=== PATIENT | male | born 1970 | race Two or more races ===

== ENCOUNTER 2020-08-22 18:27 | Inpatient (IN) | payer OTHER ==
[2020-08-22] MEDS ORDERED: P-EPHED 60MG/TRIPROLIDI 2.5MG TABLET PO PRN (21:16)
[2020-08-22] MEDS ORDERED: NICOTINE POLACRILEX 2 MG GUM BUC PRN (21:16)
[2020-08-22] MEDS ORDERED: guaiFENesin 200 MG/10 ML 10 ML UNIT-DOSE CUPS PO PRN (21:16)
[2020-08-22] MEDS ORDERED: DICYCLOMINE HCL 10 MG CAPSULE PO PRN (21:16)
[2020-08-22] MEDS ORDERED: IBUPROFEN 400 MG TABLET (FP) PO PRN (21:16)
[2020-08-22] MEDS ORDERED: MAGNESIUM HYDROX 2400MG/30ML ORAL SUSPENSION 30 ML CUP PO PRN (21:16)
[2020-08-22] MEDS ORDERED: NALOXONE HCL 0.4 MG/ML VIAL IM PRN (21:16)
[2020-08-22] MEDS ORDERED: NALOXONE (NARCAN) HCL 4 MG/0.1 ML SPRAY NS PRN (21:16)
[2020-08-22] MEDS ORDERED: MAGNESIUM CITRATE 300 ML BOTTLE PO PRN (21:16)
[2020-08-22] MEDS ORDERED: ACETAMINOPHEN 325 MG TABLET (FP) PO PRN ×2 (21:16)
[2020-08-22] MEDS ORDERED: MENTHOL/PHENOL 1 EACH UD MM PRN (21:16)
[2020-08-22] MEDS ORDERED: BISMUTH SUBSALICYLATE 524 MG/30 ML PO PRN (21:16)
[2020-08-22] MEDS ORDERED: MAG HYDROX/AL HYDROX/SIMETH 30 ML UNIT-DOSE CUP PO PRN (21:16)
[2020-08-22] MEDS ORDERED: ONDANSETRON *ODT* 4 MG TABLET SL PRN (21:16)
[2020-08-22] MEDS ORDERED: diazePAM 5 MG TABLET ONE (21:41)
[2020-08-22] MEDS: diazePAM 5 MG TABLET PO PRN (21:44)
[2020-08-22 21:55] VITALS: BMI 28.5
[2020-08-22] MEDS: diazePAM 5 MG TABLET PO SCH (23:29)
[2020-08-22] MEDS: THIAMINE HCL 100 MG TABLET (FP) PO SCH (23:30)
[2020-08-22] MEDS: MELATONIN 5 MG TABLETS PO SCH (23:30)
[2020-08-23] MEDS: diazePAM 5 MG TABLET PO SCH ×4 (05:22→22:10)
[2020-08-23] MEDS: METHOCARBAMOL 500 MG TABLET PO PRN (05:22)
[2020-08-23] MEDS: diazePAM 5 MG TABLET PO PRN ×2 (08:54→15:25)
[2020-08-23] MEDS: NICOTINE 21 MG/24 HOURS TOPICAL PATCH TD SCH (10:05)
[2020-08-23] MEDS: METHADONE HCL 40 MG DISPERSABLE TABLET PO SCH (10:05)
[2020-08-23] MEDS: cloNIDine HCL 0.1 MG TABLET PO SCH ×2 (10:05→22:10)
[2020-08-23] MEDS: PRENATAL VITAMINS W/ FOLIC ACID TABLET (FP) PO SCH (10:06)
[2020-08-23 10:21] LABS: HEMATOCRIT 40.7 % (35.4-49); HEMOGLOBIN 14.2 GM/dL (11.7-16.9); MCH 31.8 pg (25.7-33.7); MCHC 34.9 g/dl (32.0-35.9); MEAN PLT VOLUME 8.9 fl (7.5-11.1); PLATELET COUNT 195 K/MM3 (134-434); RBC 4.47 M/mm3 (4.00-5.60); RDW 13.9 % (11.9-15.9); WHITE BLOOD COUNT 7.4 K/mm3 (4.0-10.0)
[2020-08-23 10:29] LABS: ALBUMIN 4.1 g/dl (3.4-5.0); CALCIUM 8.7 mg/dL (8.5-10.1)
[2020-08-23 10:30] LABS: BLOOD UREA NITROGEN 12.2 mg/dL (7-18)
[2020-08-23 10:34] LABS: BILIRUBIN,TOTAL 0.4 mg/dL (0.2-1); TOT PROT 7.7 g/dl (6.4-8.2)
[2020-08-23] MEDS: THIAMINE HCL 100 MG TABLET (FP) PO SCH (22:10)
[2020-08-23] MEDS: MELATONIN 5 MG TABLETS PO SCH (22:11)
[2020-08-23] MEDS: MIRTAZAPINE 15 MG TABLET (FP) PO SCH (22:11)
[2020-08-24] MEDS: METHADONE HCL 40 MG DISPERSABLE TABLET PO SCH (06:06)
[2020-08-24] MEDS: diazePAM 5 MG TABLET PO SCH ×3 (06:08→22:25)
[2020-08-24] MEDS: cloNIDine HCL 0.1 MG TABLET PO SCH ×2 (10:06→23:06)
[2020-08-24] MEDS: NICOTINE 21 MG/24 HOURS TOPICAL PATCH TD SCH (10:06)
[2020-08-24] MEDS: PRENATAL VITAMINS W/ FOLIC ACID TABLET (FP) PO SCH (10:06)
[2020-08-24] MEDS: diazePAM 5 MG TABLET PO PRN ×2 (16:46→20:24)
[2020-08-24] MEDS: MIRTAZAPINE 15 MG TABLET (FP) PO SCH (22:25)
[2020-08-24] MEDS: THIAMINE HCL 100 MG TABLET (FP) PO SCH (22:25)
[2020-08-24] MEDS: MELATONIN 5 MG TABLETS PO SCH (22:26)
[2020-08-25] MEDS: METHADONE HCL 40 MG DISPERSABLE TABLET PO SCH (05:54)
[2020-08-25] MEDS: diazePAM 5 MG TABLET PO SCH ×2 (05:55→17:01)
[2020-08-25] MEDS ORDERED: TRIMETHOBENZAMIDE HCL 300 MG CAPSULE PO PRN (09:18)
[2020-08-25] MEDS ORDERED: METHADONE HCL 10 MG TABLET PO ONE (09:23)
[2020-08-25] MEDS ORDERED: METHADONE 80 MG, METHADONE 10 MG PO ONE (09:45)
[2020-08-25] MEDS ORDERED: DICYCLOMINE HCL 10 MG CAPSULE PO ONE (09:52)
[2020-08-25] MEDS ORDERED: METHADONE HCL 40 MG DISPERSABLE TABLET ONE (09:53)
[2020-08-25] MEDS ORDERED: ONDANSETRON *ODT* 4 MG TABLET SL ONE (09:53)
[2020-08-25] MEDS ORDERED: METHADONE HCL 10 MG TABLET ONE (09:53)
[2020-08-25] MEDS: NICOTINE 21 MG/24 HOURS TOPICAL PATCH TD SCH (10:00)
[2020-08-25] MEDS: PRENATAL VITAMINS W/ FOLIC ACID TABLET (FP) PO SCH (10:01)
[2020-08-25] MEDS: cloNIDine HCL 0.1 MG TABLET PO SCH ×2 (10:01→22:19)
[2020-08-25] MEDS: hydrOXYzine PAMOATE 25 MG CAPSULE (FP) PO PRN (17:01)
[2020-08-25] MEDS: METHOCARBAMOL 500 MG TABLET PO PRN (17:01)
[2020-08-25] MEDS: MELATONIN 5 MG TABLETS PO SCH (22:19)
[2020-08-25] MEDS: THIAMINE HCL 100 MG TABLET (FP) PO SCH (22:19)
[2020-08-25] MEDS: MIRTAZAPINE 15 MG TABLET (FP) PO SCH (22:19)
[2020-08-26] MEDS ORDERED: METHADONE HCL 10 MG TABLET ONE (04:29)
[2020-08-26] MEDS ORDERED: METHADONE HCL 40 MG DISPERSABLE TABLET ONE (04:30)
[2020-08-26] MEDS: METHADONE 160 MG, METHADONE 30 MG PO SCH (05:37)
[2020-08-26] MEDS ORDERED: diazePAM 5 MG TABLET PO ONE (06:00)
[2020-08-26] MEDS: cloNIDine HCL 0.1 MG TABLET PO SCH ×2 (10:14→22:06)
[2020-08-26] MEDS: NICOTINE 21 MG/24 HOURS TOPICAL PATCH TD SCH (10:14)
[2020-08-26] MEDS: PRENATAL VITAMINS W/ FOLIC ACID TABLET (FP) PO SCH (10:14)
[2020-08-26 14:07] LABS: SARS-CoV-2 NAA Not Detected (Not Detected)
[2020-08-26] MEDS: hydrOXYzine PAMOATE 25 MG CAPSULE (FP) PO PRN (19:13)
[2020-08-26] MEDS: THIAMINE HCL 100 MG TABLET (FP) PO SCH (22:06)
[2020-08-26] MEDS: MIRTAZAPINE 15 MG TABLET (FP) PO SCH (22:06)
[2020-08-26] MEDS: MELATONIN 5 MG TABLETS PO SCH (22:06)
[2020-08-27] MEDS ORDERED: METHADONE HCL 40 MG DISPERSABLE TABLET ONE (04:57)
[2020-08-27] MEDS ORDERED: METHADONE HCL 10 MG TABLET ONE (04:57)
[2020-08-27] MEDS ORDERED: diazePAM 5 MG TABLET PO ONE (05:00)
[2020-08-27] MEDS: METHADONE 160 MG, METHADONE 30 MG PO SCH (05:21)
[2020-08-27] MEDS: PRENATAL VITAMINS W/ FOLIC ACID TABLET (FP) PO SCH (10:02)
[2020-08-27] MEDS: cloNIDine HCL 0.1 MG TABLET PO SCH (10:03)
[2020-08-27] MEDS: NICOTINE 21 MG/24 HOURS TOPICAL PATCH TD SCH (10:03)
[2020-08-27 13:20] VITALS: BP 147/96; PULSE 69; TEMP 98.6
[2020-08-27] MEDS: hydrOXYzine PAMOATE 25 MG CAPSULE (FP) PO PRN (13:32)
[2020-08-27] MEDS ORDERED: PSYLLIUM 5.85 GM PACKET PO SCH (14:00)
== END 2020-08-27 15:11 | disposition other institution (70) | DRG 773 ==
LOC: YASAS 18:27 → Y6N 22:04
PROVIDERS: ADMIT Allergy & Immunology; ATTEND Allergy & Immunology
PROC: HZ2ZZZZ Detoxification Services for Substance Abuse Treatment (ICD-10-PCS; principal; 2020-08-22)
DX: F13.230 Sedative, hypnotic or anxiolytic dependence with withdrawal, uncomplicated (principal); F11.20 Opioid dependence, uncomplicated; F17.210 Nicotine dependence, cigarettes, uncomplicated; F19.24 Other psychoactive substance dependence with psychoactive substance-induced mood disorder; G40.509 Epileptic seizures related to external causes, not intractable, without status epilepticus; G47.00 Insomnia, unspecified; I10 Essential (primary) hypertension; B18.2 Chronic viral hepatitis C
CPT/HCPCS: 36415; 80053; 85027; 86780; C9803; J0735; Q0162; U0003; U0005

== ENCOUNTER 2020-08-27 15:31 | Inpatient (IN) | payer OTHER ==
[2020-08-27] MEDS ORDERED: guaiFENesin 200 MG/10 ML 10 ML UNIT-DOSE CUPS PO PRN (15:49)
[2020-08-27] MEDS ORDERED: MAGNESIUM CITRATE 300 ML BOTTLE PO PRN (15:49)
[2020-08-27] MEDS ORDERED: MAG HYDROX/AL HYDROX/SIMETH 30 ML UNIT-DOSE CUP PO PRN (15:49)
[2020-08-27] MEDS ORDERED: NICOTINE POLACRILEX 4 MG GUM BC PRN (15:49)
[2020-08-27] MEDS ORDERED: ACETAMINOPHEN 325 MG TABLET (FP) PO PRN (15:49)
[2020-08-27] MEDS ORDERED: P-EPHED 60MG/TRIPROLIDI 2.5MG TABLET PO PRN (15:49)
[2020-08-27] MEDS ORDERED: LOPERAMIDE HCL 2 MG CAPSULE PO PRN (15:49)
[2020-08-27] MEDS ORDERED: cloNIDine HCL 0.1 MG TABLET PO ONE (16:54)
[2020-08-27] MEDS: hydrOXYzine PAMOATE 25 MG CAPSULE (FP) PO SCH ×2 (18:09→21:14)
[2020-08-27] MEDS: THIAMINE HCL 100 MG TABLET (FP) PO SCH (21:13)
[2020-08-27] MEDS: MELATONIN 5 MG TABLETS PO SCH (21:13)
[2020-08-27] MEDS: MIRTAZAPINE 15 MG TABLET (FP) PO SCH (21:14)
[2020-08-27] MEDS: cloNIDine HCL 0.1 MG TABLET PO SCH (21:14)
[2020-08-28] MEDS ORDERED: METHADONE HCL 10 MG TABLET PO SCH (06:00)
[2020-08-28] MEDS ORDERED: METHADONE HCL 40 MG DISPERSABLE TABLET ONE (06:17)
[2020-08-28] MEDS ORDERED: METHADONE HCL 10 MG TABLET ONE (06:17)
[2020-08-28] MEDS: METHADONE 160 MG, METHADONE 30 MG PO SCH (06:18)
[2020-08-28] MEDS: hydrOXYzine PAMOATE 25 MG CAPSULE (FP) PO SCH ×5 (06:19→21:09)
[2020-08-28] MEDS: NICOTINE 21 MG/24 HOURS TOPICAL PATCH TD SCH (09:52)
[2020-08-28] MEDS: cloNIDine HCL 0.1 MG TABLET PO SCH ×2 (09:52→21:09)
[2020-08-28] MEDS: PRENATAL VITAMINS W/ FOLIC ACID TABLET (FP) PO SCH (10:38)
[2020-08-28] MEDS: PSYLLIUM 5.85 GM PACKET PO SCH (14:12)
[2020-08-28] MEDS: MIRTAZAPINE 15 MG TABLET (FP) PO SCH (21:09)
[2020-08-28] MEDS: MELATONIN 5 MG TABLETS PO SCH (21:10)
[2020-08-28] MEDS: THIAMINE HCL 100 MG TABLET (FP) PO SCH (21:11)
[2020-08-29] MEDS ORDERED: METHADONE HCL 40 MG DISPERSABLE TABLET ONE (03:17)
[2020-08-29] MEDS ORDERED: METHADONE HCL 10 MG TABLET ONE (03:18)
[2020-08-29] MEDS: hydrOXYzine PAMOATE 25 MG CAPSULE (FP) PO SCH ×6 (06:41→21:48)
[2020-08-29] MEDS: METHADONE 160 MG, METHADONE 30 MG PO SCH (06:41)
[2020-08-29] MEDS ORDERED: SODIUM PHOSPHATE/NA BIPHOS 133 ML ENEMA RC ONE (10:00)
[2020-08-29] MEDS: PRENATAL VITAMINS W/ FOLIC ACID TABLET (FP) PO SCH (10:16)
[2020-08-29] MEDS: NICOTINE 21 MG/24 HOURS TOPICAL PATCH TD SCH (10:17)
[2020-08-29] MEDS: PSYLLIUM 5.85 GM PACKET PO SCH (10:17)
[2020-08-29] MEDS: cloNIDine HCL 0.1 MG TABLET PO SCH ×2 (10:17→21:47)
[2020-08-29] MEDS: THIAMINE HCL 100 MG TABLET (FP) PO SCH (21:47)
[2020-08-29] MEDS: MIRTAZAPINE 15 MG TABLET (FP) PO SCH (21:47)
[2020-08-29] MEDS: MELATONIN 5 MG TABLETS PO SCH (21:48)
[2020-08-30] MEDS ORDERED: METHADONE HCL 40 MG DISPERSABLE TABLET ONE (03:31)
[2020-08-30] MEDS ORDERED: METHADONE HCL 10 MG TABLET ONE (03:31)
[2020-08-30] MEDS: METHADONE 160 MG, METHADONE 30 MG PO SCH (06:19)
[2020-08-30] MEDS: hydrOXYzine PAMOATE 25 MG CAPSULE (FP) PO SCH ×5 (06:20→21:17)
[2020-08-30] MEDS: PRENATAL VITAMINS W/ FOLIC ACID TABLET (FP) PO SCH (10:26)
[2020-08-30] MEDS: PSYLLIUM 5.85 GM PACKET PO SCH (10:26)
[2020-08-30] MEDS: NICOTINE 21 MG/24 HOURS TOPICAL PATCH TD SCH (10:26)
[2020-08-30] MEDS: cloNIDine HCL 0.1 MG TABLET PO SCH ×2 (10:26→21:17)
[2020-08-30] MEDS: IBUPROFEN 400 MG TABLET (FP) PO PRN (17:17)
[2020-08-30] MEDS: MELATONIN 5 MG TABLETS PO SCH (21:17)
[2020-08-30] MEDS: MIRTAZAPINE 15 MG TABLET (FP) PO SCH (21:17)
[2020-08-30] MEDS: THIAMINE HCL 100 MG TABLET (FP) PO SCH (21:18)
[2020-08-31] MEDS ORDERED: METHADONE HCL 10 MG TABLET ONE (04:13)
[2020-08-31] MEDS ORDERED: METHADONE HCL 40 MG DISPERSABLE TABLET ONE (04:13)
[2020-08-31] MEDS: METHADONE 160 MG, METHADONE 30 MG PO SCH (06:07)
[2020-08-31] MEDS: hydrOXYzine PAMOATE 25 MG CAPSULE (FP) PO SCH ×5 (06:07→21:36)
[2020-08-31] MEDS: MAGNESIUM HYDROX 2400MG/30ML ORAL SUSPENSION 30 ML CUP PO PRN (07:42)
[2020-08-31] MEDS: cloNIDine HCL 0.1 MG TABLET PO SCH ×2 (10:01→21:35)
[2020-08-31] MEDS: NICOTINE 21 MG/24 HOURS TOPICAL PATCH TD SCH (10:02)
[2020-08-31] MEDS: PRENATAL VITAMINS W/ FOLIC ACID TABLET (FP) PO SCH (10:02)
[2020-08-31] MEDS: PSYLLIUM 5.85 GM PACKET PO SCH (10:02)
[2020-08-31 11:07] LABS: SARS-CoV-2 NAA Not Detected (Not Detected)
[2020-08-31] MEDS: MELATONIN 5 MG TABLETS PO SCH (21:36)
[2020-08-31] MEDS: MIRTAZAPINE 15 MG TABLET (FP) PO SCH (21:36)
[2020-08-31] MEDS: THIAMINE HCL 100 MG TABLET (FP) PO SCH (21:36)
[2020-09-01] MEDS ORDERED: METHADONE HCL 10 MG TABLET ONE (03:06)
[2020-09-01] MEDS ORDERED: METHADONE HCL 40 MG DISPERSABLE TABLET ONE (03:06)
[2020-09-01] MEDS: METHADONE 160 MG, METHADONE 30 MG PO SCH (06:10)
[2020-09-01] MEDS: MAGNESIUM HYDROX 2400MG/30ML ORAL SUSPENSION 30 ML CUP PO PRN (06:10)
[2020-09-01] MEDS: hydrOXYzine PAMOATE 25 MG CAPSULE (FP) PO SCH ×3 (06:12→14:56)
[2020-09-01] MEDS: PRENATAL VITAMINS W/ FOLIC ACID TABLET (FP) PO SCH (09:26)
[2020-09-01] MEDS: cloNIDine HCL 0.1 MG TABLET PO SCH ×2 (09:26→21:14)
[2020-09-01] MEDS: NICOTINE 21 MG/24 HOURS TOPICAL PATCH TD SCH (09:26)
[2020-09-01] MEDS: PSYLLIUM 5.85 GM PACKET PO SCH (10:31)
[2020-09-01] MEDS ORDERED: MASKS NR ONE (13:01)
[2020-09-01] MEDS: MIRTAZAPINE 15 MG TABLET (FP) PO SCH (21:14)
[2020-09-01] MEDS: THIAMINE HCL 100 MG TABLET (FP) PO SCH (21:14)
[2020-09-01] MEDS: MELATONIN 5 MG TABLETS PO SCH (21:14)
[2020-09-02] MEDS ORDERED: METHADONE HCL 40 MG DISPERSABLE TABLET ONE (03:27)
[2020-09-02] MEDS ORDERED: METHADONE HCL 10 MG TABLET ONE (03:27)
[2020-09-02] MEDS: METHADONE 160 MG, METHADONE 30 MG PO SCH (06:14)
[2020-09-02] MEDS: PRENATAL VITAMINS W/ FOLIC ACID TABLET (FP) PO SCH (09:41)
[2020-09-02] MEDS: cloNIDine HCL 0.1 MG TABLET PO SCH ×2 (09:41→21:29)
[2020-09-02] MEDS: NICOTINE 21 MG/24 HOURS TOPICAL PATCH TD SCH (09:41)
[2020-09-02] MEDS: PSYLLIUM 5.85 GM PACKET PO SCH (09:42)
[2020-09-02] MEDS: hydrOXYzine PAMOATE 25 MG CAPSULE (FP) PO PRN (16:26)
[2020-09-02] MEDS: MAGNESIUM HYDROX 2400MG/30ML ORAL SUSPENSION 30 ML CUP PO PRN (16:26)
[2020-09-02] MEDS: MIRTAZAPINE 15 MG TABLET (FP) PO SCH (21:29)
[2020-09-02] MEDS: MELATONIN 5 MG TABLETS PO SCH (21:30)
[2020-09-02] MEDS: THIAMINE HCL 100 MG TABLET (FP) PO SCH (21:30)
[2020-09-03] MEDS ORDERED: METHADONE HCL 40 MG DISPERSABLE TABLET ONE (03:10)
[2020-09-03] MEDS ORDERED: METHADONE HCL 10 MG TABLET ONE (03:11)
[2020-09-03] MEDS: METHADONE 160 MG, METHADONE 30 MG PO SCH (06:13)
[2020-09-03] MEDS: cloNIDine HCL 0.1 MG TABLET PO SCH ×2 (09:50→21:12)
[2020-09-03] MEDS: PRENATAL VITAMINS W/ FOLIC ACID TABLET (FP) PO SCH (09:50)
[2020-09-03] MEDS: NICOTINE 21 MG/24 HOURS TOPICAL PATCH TD SCH (09:51)
[2020-09-03] MEDS: PSYLLIUM 5.85 GM PACKET PO SCH (09:51)
[2020-09-03] MEDS: MIRTAZAPINE 15 MG TABLET (FP) PO SCH (21:12)
[2020-09-03] MEDS: IBUPROFEN 400 MG TABLET (FP) PO PRN (21:14)
[2020-09-03] MEDS: THIAMINE HCL 100 MG TABLET (FP) PO SCH (21:14)
[2020-09-03] MEDS: MELATONIN 5 MG TABLETS PO SCH (21:14)
[2020-09-04] MEDS ORDERED: METHADONE HCL 40 MG DISPERSABLE TABLET ONE (05:15)
[2020-09-04] MEDS ORDERED: METHADONE HCL 10 MG TABLET ONE (05:16)
[2020-09-04] MEDS: METHADONE 160 MG, METHADONE 30 MG PO SCH (06:26)
[2020-09-04] MEDS: PSYLLIUM 5.85 GM PACKET PO SCH (10:57)
[2020-09-04] MEDS: NICOTINE 21 MG/24 HOURS TOPICAL PATCH TD SCH (10:57)
[2020-09-04] MEDS: cloNIDine HCL 0.1 MG TABLET PO SCH ×2 (10:57→21:37)
[2020-09-04] MEDS: PRENATAL VITAMINS W/ FOLIC ACID TABLET (FP) PO SCH (10:58)
[2020-09-04] MEDS: MAGNESIUM HYDROX 2400MG/30ML ORAL SUSPENSION 30 ML CUP PO PRN (16:37)
[2020-09-04] MEDS: hydrOXYzine PAMOATE 25 MG CAPSULE (FP) PO PRN (21:37)
[2020-09-04] MEDS: MIRTAZAPINE 15 MG TABLET (FP) PO SCH (21:37)
[2020-09-04] MEDS: THIAMINE HCL 100 MG TABLET (FP) PO SCH (21:38)
[2020-09-04] MEDS: MELATONIN 5 MG TABLETS PO SCH (21:38)
[2020-09-05] MEDS ORDERED: METHADONE HCL 10 MG TABLET ONE (03:17)
[2020-09-05] MEDS ORDERED: METHADONE HCL 40 MG DISPERSABLE TABLET ONE (03:17)
[2020-09-05] MEDS: IBUPROFEN 400 MG TABLET (FP) PO PRN (06:14)
[2020-09-05] MEDS: METHADONE 160 MG, METHADONE 30 MG PO SCH (06:15)
[2020-09-05] MEDS ORDERED: cloNIDine HCL 0.1 MG TABLET PO ONE (07:15)
[2020-09-05] MEDS: PSYLLIUM 5.85 GM PACKET PO SCH (09:05)
[2020-09-05] MEDS: NICOTINE 21 MG/24 HOURS TOPICAL PATCH TD SCH (09:05)
[2020-09-05] MEDS: cloNIDine HCL 0.1 MG TABLET PO SCH (09:05)
[2020-09-05] MEDS: PRENATAL VITAMINS W/ FOLIC ACID TABLET (FP) PO SCH (09:05)
[2020-09-05 09:27] VITALS: BP 192/89; PULSE 57; TEMP 57
== END 2020-09-05 10:00 | disposition home or self-care (01) | DRG 772 ==
LOC: YASAS 15:31 → Y3W 15:40 → UNDOADMIN 15:40 → UNDODISIN 09-05 10:00
PROVIDERS: ADMIT Allergy & Immunology; ATTEND Allergy & Immunology
PROC: HZ42ZZZ Group Counseling for Substance Abuse Treatment, Cognitive-Behavioral (ICD-10-PCS; principal; 2020-08-27)
DX: F11.20 Opioid dependence, uncomplicated (principal); F13.20 Sedative, hypnotic or anxiolytic dependence, uncomplicated; F17.210 Nicotine dependence, cigarettes, uncomplicated; I10 Essential (primary) hypertension; K59.00 Constipation, unspecified
CPT/HCPCS: C9803; J0735; U0003; U0005

== ENCOUNTER 2020-11-30 11:08 | Inpatient (IN) | payer OTHER ==
[2020-11-30 12:06] VITALS: BMI 28.5
[2020-11-30] MEDS ORDERED: NICOTINE 10 MG CARTRIDGE (INHALER) IH PRN (13:14)
[2020-11-30] MEDS ORDERED: IBUPROFEN 400 MG TABLET (FP) PO PRN (13:14)
[2020-11-30] MEDS ORDERED: ONDANSETRON *ODT* 4 MG TABLET SL PRN (13:14)
[2020-11-30] MEDS ORDERED: MENTHOL/PHENOL 1 EACH UD MM PRN (13:14)
[2020-11-30] MEDS ORDERED: diazePAM 5 MG TABLET PO PRN (13:14)
[2020-11-30] MEDS ORDERED: ACETAMINOPHEN 325 MG TABLET (FP) PO PRN ×2 (13:14)
[2020-11-30] MEDS ORDERED: METHOCARBAMOL 500 MG TABLET PO PRN (13:14)
[2020-11-30] MEDS ORDERED: BISMUTH SUBSALICYLATE 524 MG/30 ML PO PRN (13:14)
[2020-11-30] MEDS ORDERED: diazePAM 5 MG TABLET PO ONE (13:14)
[2020-11-30] MEDS ORDERED: MAG HYDROX/AL HYDROX/SIMETH 30 ML UNIT-DOSE CUP PO PRN (13:14)
[2020-11-30] MEDS ORDERED: MAGNESIUM HYDROX 2400MG/30ML ORAL SUSPENSION 30 ML CUP PO PRN (13:14)
[2020-11-30] MEDS ORDERED: NICOTINE POLACRILEX 2 MG GUM BUC PRN (13:14)
[2020-11-30] MEDS ORDERED: MAGNESIUM CITRATE 300 ML BOTTLE PO PRN (13:14)
[2020-11-30] MEDS ORDERED: diazePAM 5 MG TABLET ONE (15:01)
[2020-11-30] MEDS ORDERED: hydrOXYzine PAMOATE 25 MG CAPSULE (FP) PO ONE (15:01)
[2020-11-30] MEDS: hydrOXYzine PAMOATE 25 MG CAPSULE (FP) PO SCH ×2 (15:02→17:27)
[2020-11-30] MEDS: diazePAM 5 MG TABLET PO SCH (17:27)
[2020-11-30] MEDS ORDERED: THIAMINE HCL 100 MG TABLET (FP) PO SCH (22:00)
[2020-11-30] MEDS ORDERED: MELATONIN 5 MG TABLETS PO SCH (22:00)
[2020-12-01] MEDS: diazePAM 5 MG TABLET PO SCH ×3 (00:03→10:17)
[2020-12-01] MEDS: hydrOXYzine PAMOATE 25 MG CAPSULE (FP) PO SCH ×3 (00:03→11:03)
[2020-12-01] MEDS ORDERED: methaDONE HCL 10 MG TABLET ONE (04:11)
[2020-12-01] MEDS ORDERED: methaDONE HCL 40 MG DISPERSABLE TABLET ONE (04:12)
[2020-12-01] MEDS ORDERED: methaDONE HCL 10 MG TABLET PO ONE (06:00)
[2020-12-01] MEDS ORDERED: PRENATAL VITAMINS W/ FOLIC ACID TABLET (FP) PO SCH (10:00)
[2020-12-01] MEDS ORDERED: hydrOXYzine PAMOATE 50 MG CAPSULE (FP) PO PRN (10:08)
[2020-12-01 12:57] VITALS: BP 129/94; PULSE 56; TEMP 98
[2020-12-01] MEDS ORDERED: MIRTAZAPINE 30 MG TABLET PO SCH (22:00)
[2020-12-02] MEDS ORDERED: diazePAM 5 MG TABLET PO SCH (06:00)
[2020-12-03] MEDS ORDERED: diazePAM 5 MG TABLET PO SCH (06:00)
[2020-12-04] MEDS ORDERED: diazePAM 5 MG TABLET PO ONE (06:00)
== END 2020-12-01 15:34 | disposition left against medical advice (07) | DRG 770 ==
LOC: YASAS 11:08 → Y6N 15:55 → Y3N 12-01 14:38
PROVIDERS: ADMIT Allergy & Immunology; ATTEND Allergy & Immunology
PROC: HZ2ZZZZ Detoxification Services for Substance Abuse Treatment (ICD-10-PCS; principal; 2020-11-30)
DX: F13.230 Sedative, hypnotic or anxiolytic dependence with withdrawal, uncomplicated (principal); F11.20 Opioid dependence, uncomplicated; F14.10 Cocaine abuse, uncomplicated; F12.20 Cannabis dependence, uncomplicated; F17.210 Nicotine dependence, cigarettes, uncomplicated; F19.280 Other psychoactive substance dependence with psychoactive substance-induced anxiety disorder; F19.282 Other psychoactive substance dependence with psychoactive substance-induced sleep disorder; F51.01 Primary insomnia; F43.10 Post-traumatic stress disorder, unspecified; B18.2 Chronic viral hepatitis C; I10 Essential (primary) hypertension; G40.509 Epileptic seizures related to external causes, not intractable, without status epilepticus
CPT/HCPCS: C9803; U0003; U0005